=== PATIENT | male | born 1955 | race Caucasian/White ===

== ENCOUNTER 2021-02-08 08:16 | Inpatient (IN) | payer OTHER ==
[2021-02-01 15:03] LABS: BASOPHILS % (AUTO) 0.3 % (0-1); EOSINOPHILS # (AUTO) 0.1 X10'3 (0-0.9); EOSINOPHILS % (AUTO) 1.4 % (0-6); LYMPHOCYTES # (AUTO) 1.6 X10'3 (1.1-4.8); LYMPHOCYTES % (AUTO) 27.5 % (21-51); MEAN CORPUSCULAR HEMOGLOBIN 32.6 PG (27.0-31.0); MEAN CORPUSCULAR HGB CONC 34.1 g/dL (33.0-36.5); MEAN CORPUSCULAR VOLUME 95.6 FL (78-98); MEAN PLATELET VOLUME 8.1 FL (7.4-10.4); MONOCYTES # (AUTO) 0.6 X10'3 (0-0.9); MONOCYTES % (AUTO) 10.1 % (2-12); NEUTROPHILS # (AUTO) 3.6 X10'3 (1.8-7.7); NEUTROPHILS % (AUTO) 60.7 % (42-75); PRE OP HEMATOCRIT 41.8 % (42.0-52.0); PRE OP HEMOGLOBIN 14.3 g/dL (14.0-17.9); PRE OP PLATELET COUNT 206 X10'3 (140-440); RED BLOOD COUNT 4.37 X10'6 (4.70-6.10); RED CELL DISTRIBUTION WIDTH 13.6 % (11.5-14.5)
[2021-02-01 15:19] LABS: ALBUMIN 3.9 G/DL (3.4-5.0); ALKALINE PHOSPHATASE 72 IU/L (46-116); BLOOD UREA NITROGEN 17 MG/DL (7-18); BUN/CREATININE RATIO 19.3 (5.4-32.0); CHLORIDE 104 MMOL/L (99-107); CREATININE 0.88 MG/DL (0.60-1.10); PRE OP ALT 36 U/L (30-65); PRE OP ANION GAP 5 (8-16); PRE OP AST 22 U/L (10-37); PRE OP BILIRUB, TOTAL 0.3 MG/DL (0.0-1.0); PRE OP GLUCOSE 94 MG/DL (70-104); PRE OP POTASSIUM 4.3 MMOL/L (3.4-5.1); PRE OP SODIUM 139 MMOL/L (135-145); TOTAL CARBON DIOXIDE 30.2 MMOL/L (24-32); TOTAL PROTEIN 7.8 G/DL (6.4-8.2); eGFR 87 ML/MIN
[2021-02-08] VITALS (27 sets, daily range): BP systolic 105–150; BP diastolic 65–82
[~2021-02-08] VITALS: Ht 175.3 cm; Wt 69.0 kg
[~2021-02-08 08:16] MED LIST: NO HOME MEDS; VANCOMYCIN INJ 1000 MG in NORMAL SALINE 250ml IV.SOLN IV ONE; ceFAZolin 2gm in dextrose, iso 50 ML IV ONE; famotidine 20mg tablet PO ONE; ringers solution, lacted 1,000 ML IV SCH; tranexamic acid 650mg tablet PO ONE
[2021-02-08] MEDS ORDERED: ketorolac trometh. 30mg/ml inj. ONE (10:34)
[2021-02-08] MEDS ORDERED: ROPIVAcaine 0.5% (5mg/ml) 30ml vial ONE ×2 (10:34→12:53)
[2021-02-08] MEDS ORDERED: meperidine/PF 25mg/ml syringe IV PRN ×3 (11:15)
[2021-02-08] MEDS ORDERED: ROPIVAcaine 0.2%/PF PUMP/bolus 545 ML INTERSCALE SCH (11:15)
[2021-02-08] MEDS ORDERED: morphine 4 MG/ML inj SYRINge IV PRN (11:15)
[2021-02-08] MEDS ORDERED: ringers solution, lacted 1,000 ML IV SCH (11:15)
[2021-02-08] MEDS ORDERED: proCHLORperazine 10 MG/2 ml inj IV PRN (11:15)
[2021-02-08] MEDS ORDERED: ROPIVAcaine 0.2% (10 MG/5 ML) BOLUS INJECTION INTERSCALE PRN (11:15)
[2021-02-08] MEDS ORDERED: ondansetron/PF 4mg/2ml inj IV PRN ×2 (11:15→14:05)
[2021-02-08] MEDS ORDERED: morphine 2 MG/ML inj. syringe IV PRN (11:15)
[2021-02-08] MEDS ORDERED: fentaNYL/PF 50MCG/1 ML 2ML syringe ONE (11:59)
[2021-02-08] MEDS ORDERED: MIDAZolam 1 MG/ML 5ML VIAL ONE (12:00)
[2021-02-08] MEDS ORDERED: propofol inj 20 ML IV ONE (12:16)
[2021-02-08] MEDS ORDERED: ePHEDrine 50MG/ML INJ. ONE (12:53)
[2021-02-08] MEDS ORDERED: bisacodyl 10mg suppository rectal RC PRN (14:05)
[2021-02-08] MEDS ORDERED: HYDROmorphone inj. 0.5 MG/0.5 ML DISP.SYRIN IV PRN (14:05)
[2021-02-08] MEDS ORDERED: oxyCODONE IR 5mg (immed. release) tablet PO PRN ×2 (14:05)
[2021-02-08] MEDS ORDERED: magnesium hydroxide 30ml (MOM) UD suspension PO PRN (14:05)
[2021-02-08] MEDS ORDERED: acetaminophen 325mg tablet PO PRN (14:05)
[2021-02-08] MEDS ORDERED: HYDROmorphone 1 mg/ml syringe IV PRN (14:05)
[2021-02-08] MEDS ORDERED: diphenhydrAMINE 25mg capsule PO PRN ×2 (14:05)
--- NOTE | 2021-02-08 14:13 | NUR ---
Received from OR via , accompanied by Anesthesiologist DR BARROW and report given by Anesthesiolgist. PT PRESENT WITH 18 G LEFT HAND, RIGHT SHOULDER DRESSSING DRY AND INTACT WITH PODER PACK. VSS. Addendum: 02/08/21 at 1419 by Bere Nur RN, RN Amended: Links added.
--- NOTE | 2021-02-08 18:52 | NUR ---
Report called to receiving nurse CLAUDIA. Transferred via HOSPITAL BED TO ROOM 356B WITH 2 BAGS OF PT Belongings. PT PROVIDED WITH CALL LIGHT, BED IN LOW LOCKED POSITION, VSS. . Special Issues communicated to receiving nurse. Addendum: 02/08/21 at 1905 by Bere Nur RN RN Amended: Links added.
[2021-02-08] MEDS ORDERED: vancomycin/NS 1 GM ADD-VANTAGE 250 ML IV SCH (20:00)
[2021-02-08] MEDS: gabapentin 300mg capsule PO SCH (20:12)
[2021-02-08] MEDS: acetaminophen 325mg tablet PO SCH (20:12)
[2021-02-08] MEDS ORDERED: sennosides 8.6mg tablet PO SCH (21:00)
[2021-02-08] MEDS: potassium cl 20mEq in 1/2 NS 1,000 ML IV SCH (22:05)
[2021-02-08] MEDS: ceFAZolin/D5W- 1GM premix 50 ML IV SCH (23:38)
[2021-02-09] VITALS: BP 114/62
[2021-02-09] MEDS: ceFAZolin/D5W- 1GM premix 50 ML IV SCH (01:26)
[2021-02-09] MEDS: potassium cl 20mEq in 1/2 NS 1,000 ML IV SCH ×3 (01:38→14:05)
[2021-02-09] MEDS: acetaminophen 325mg tablet PO SCH ×3 (02:00→13:53)
--- NOTE | 2021-02-09 05:26 | NUR ---
Post arthroplasty to right shoulder with Island dressing and sling in place. Medicated x 1 for pain and effective. Sensation to right arm , fingers and shoulder reported by patient. IV fluid in place and no S/S of fluid overload noted. Safety and comfort measures maintained. Patient aware to contact staff with needs and concern. Call light, and personal items within patient reach. Addendum: 02/09/21 at 0534 by Zaire Wayne RN Island dressing dry and intact.
--- NOTE | 2021-02-09 07:18 | NUR ---
MD Campos rounded. Pt. c/o lightheadedness and bp 99/51 hr 46. EKG ordered. does not want oxy IR given now for pain but recommended turning up onQ ball and giving Tylenol.
[2021-02-09 08:00] VITALS: BP 95/53
[2021-02-09 08:01] LABS: BASOPHILS % (AUTO) 0.2 % (0-1); EOSINOPHILS % (AUTO) 0.3 % (0-6); HEMATOCRIT 36.9 % (42.0-52.0); HEMOGLOBIN 12.8 g/dl (14.0-17.9); LYMPHOCYTES # (AUTO) 0.9 X10'3 (1.1-4.8); MEAN CORPUSCULAR HEMOGLOBIN 33.3 PG (27.0-31.0); MEAN CORPUSCULAR HGB CONC 34.6 g/dL (33.0-36.5); MEAN CORPUSCULAR VOLUME 96.3 FL (78-98); MEAN PLATELET VOLUME 8.9 FL (7.4-10.4); MONOCYTES # (AUTO) 0.7 X10'3 (0-0.9); MONOCYTES % (AUTO) 9.7 % (2-12); NEUTROPHILS # (AUTO) 5.6 X10'3 (1.8-7.7); NEUTROPHILS % (AUTO) 77.8 % (42-75); PLATELET COUNT 156 X10'3 (140-440); RED BLOOD COUNT 3.83 X10'6 (4.70-6.10); RED CELL DISTRIBUTION WIDTH 13.8 % (11.5-14.5); WHITE BLOOD COUNT 7.2 X10'3 (4.5-11.0)
[2021-02-09] MEDS: gabapentin 300mg capsule PO SCH ×2 (08:09→13:53)
[2021-02-09] MEDS ORDERED: aspirin 325mg tablet PO SCH (08:30)
[2021-02-09 08:36] LABS: ANION GAP 10 (8-16); CHLORIDE 104 MMOL/L (99-107); POTASSIUM 4.2 MMOL/L (3.5-5.1); SODIUM 136 MMOL/L (135-145); TOTAL CARBON DIOXIDE 21.6 MMOL/L (24-32)
[2021-02-09 10:00] VITALS: BP 96/56
[2021-02-09 11:00] VITALS: BP 107/66
--- NOTE | 2021-02-09 11:55 | NUR ---
Primary Joint consult: Pt s/p reverse arthroplasty of R shoulder 02/08. Provided pt w/ written and verbal high protein diet education w/ RD contact info. Pt receptive of information, will continue to monitor. Addendum: 02/09/21 at [address] Amended: Links added.
--- NOTE | 2021-02-09 12:31 | NUR ---
Need to clarify discharge instruction, medications, and f/u. Called [facility], no answer, left voicemail with contact info.
--- NOTE | 2021-02-09 14:30 | NUR ---
DISCHARGE NOTE: Reviewed discharge paperwork with pt. Pt. slow to learn but information reinforced several times until pt. was able to provide good feedback. Reviewed discharge medications, possible ASE, OMNI ball instruction, incisional instruction and specific post op instructions provided by surgeon. Pt. has his sling on and has gathered all of his belongings. IV DC'd, cannula intact, no s/sx bleeding noted. Pt. had the opportunities to ask questions and did. Written information on reverse arthroplasty of shoulder given. Pt. read and has no questions. Extra island dressings provided. Pt. aware to call [facility] office if any questions or concerns... contact information provided. Knows he needs to get a PCP and f/u with PCP and [facility].
[2021-02-09] MEDS ORDERED: celeCOXIB 100mg capsule PO SCH (20:00)
[2021-02-10] MEDS ORDERED: acetaminophen 325mg tablet PO PRN (14:05)
== END 2021-02-09 14:35 | disposition home or self-care (01) | DRG 483 ==
LOC: UNDOADMIN 08:16 → PAS IN 08:16 → SUR 3N 19:00 → PAS IN 19:00
PROVIDERS: ADMIT Orthopaedic Surgery; ATTEND Orthopaedic Surgery
PROC: 0LS30ZZ Reposition Right Upper Arm Tendon, Open Approach (ICD-10-PCS; 2021-02-08)
PROC: 3E0T3BZ Introduction of Anesthetic Agent into Peripheral Nerves and Plexi, Percutaneous Approach (ICD-10-PCS; 2021-02-08)
PROC: 0RRJ00Z Replacement of Right Shoulder Joint with Reverse Ball and Socket Synthetic Substitute, Open Approach (ICD-10-PCS; principal; 2021-02-08 11:51)
DX: M75.121 Complete rotator cuff tear or rupture of right shoulder, not specified as traumatic (principal); M19.011 Primary osteoarthritis, right shoulder; M65.811 Other synovitis and tenosynovitis, right shoulder
CPT/HCPCS: Z7506; Z7508; 36415; 73030; 80051; 80053; 82948; 85025; 87081; 93005; 97116; 97161; 97530; A4565; A4618; A7000; C1776; G0378; J0690; J1170; J1885; J2250; J2704; J2795; J3010; J3370; J3480; J7120; U0003; U0005